=== PATIENT | female | born 1955 | race Caucasian/White ===

== ENCOUNTER → 2016-08-30 | Outpatient (CLI) | payer OTHER | LOC: FIMAGING 13:27 | PROVIDERS: ATTEND Physician Assistant | DX: R22.42 Localized swelling, mass and lump, left lower limb (principal); Z85.43 Personal history of malignant neoplasm of ovary ==

== ENCOUNTER → 2016-08-31 | Outpatient (CLI) | payer OTHER | LOC: FOBOP 08:53 | PROVIDERS: ATTEND Internal Medicine Hematology & Oncology | PROC: 30243N1 Transfusion of Nonautologous Red Blood Cells into Central Vein, Percutaneous Approach (ICD-10-PCS; principal; 2016-08-31) | DX: C56.9 Malignant neoplasm of unspecified ovary (principal) | CPT/HCPCS: 36430; P9016; J1642 ==

== ENCOUNTER → 2016-10-01 | Outpatient (CLI) | payer OTHER | LOC: FOBOP 09:33 | PROVIDERS: ATTEND Internal Medicine Hematology & Oncology | PROC: 30233N1 Transfusion of Nonautologous Red Blood Cells into Peripheral Vein, Percutaneous Approach (ICD-10-PCS; principal; 2016-10-01) | DX: C56.9 Malignant neoplasm of unspecified ovary (principal) | CPT/HCPCS: 36430; P9016; J1642 ==

== ENCOUNTER 2016-12-03 08:20 | Outpatient (CLI) | payer OTHER ==
[2016-12-03 08:55] VITALS: RESP 16
[2016-12-03 11:50] VITALS: BP 108/58; PULSE 100; TEMP 99.4; O2SAT 96
== END 2016-12-03 12:00 | disposition home or self-care (01) ==
LOC: FOBOP 08:20
PROVIDERS: ATTEND Internal Medicine Hematology & Oncology
PROC: 30233N1 Transfusion of Nonautologous Red Blood Cells into Peripheral Vein, Percutaneous Approach (ICD-10-PCS; principal; 2016-12-03)
DX: D63.0 Anemia in neoplastic disease (principal); C55 Malignant neoplasm of uterus, part unspecified
CPT/HCPCS: 36430; P9016; P9040; J1642

== ENCOUNTER → 2016-12-11 | Outpatient (CLI) | payer OTHER | LOC: FOBOP 08:06 | PROVIDERS: ATTEND Internal Medicine Hematology & Oncology | PROC: 30233N1 Transfusion of Nonautologous Red Blood Cells into Peripheral Vein, Percutaneous Approach (ICD-10-PCS; principal; 2016-12-11) | DX: C56.9 Malignant neoplasm of unspecified ovary (principal) | CPT/HCPCS: 36430; P9016; J1642 ==